=== PATIENT | female | born 1965 | race American Indian/Alaskan Native ===

== ENCOUNTER 2021-11-13 12:04 | Emergency (ER) | payer OTHER ==
[~2021-11-13] VITALS: Ht 160 cm; Wt 88.0 kg
[2021-11-13] MEDS ORDERED: PREDNISONE20 MG PO (13:10)
== END 2021-11-13 13:28 | disposition home or self-care (01) ==
LOC: ED 12:04
DX: M72.2 Plantar fascial fibromatosis (principal); M54.31 Sciatica, right side
CPT/HCPCS: 99283